=== PATIENT | female | born 1960 | race Caucasian/White ===

== ENCOUNTER 2022-04-04 07:43 | Day surgery (SDC) | payer MEDICARE, OTHER ==
[2022-03-31 13:43] VITALS: BMI 26.0
[2022-04-04] MEDS ORDERED: EPINEPHrine 1 MG/ML AMP ONE (12:05)
[2022-04-04] MEDS ORDERED: Fentanyl 100 MCG/2 ML VIAL ONE ×2 (12:05→13:26)
[2022-04-04] MEDS ORDERED: Lidocaine 1% PF 5 ML VIAL ONE (12:06)
[2022-04-04] MEDS ORDERED: Dexamethasone 20 MG/5 ML VIAL ONE (12:07)
[2022-04-04] MEDS ORDERED: PROPOFOL 40 ML ONE (12:07)
[2022-04-04] MEDS ORDERED: Ondansetron PF 4 MG/2 ML Vial ONE (12:07)
[2022-04-04] MEDS ORDERED: Sodium Chloride 0.9% 20 ML ONE (12:11)
[2022-04-04] MEDS ORDERED: PHENYLEPHRINE-NS 100 MCG/ML 10 ML SYRINGE ONE (12:24)
[2022-04-04] MEDS ORDERED: Glycopyrrolate 0.2 MG/ML 5 ML SYRINGE ONE (13:01)
[2022-04-04] MEDS ORDERED: HYDROcodone/Acetaminophen 5/325 mg Tablet ONE (14:00)
== END 2022-04-04 14:25 | disposition home or self-care (01) ==
LOC: CSHSDC 07:43
PROVIDERS: ATTEND Otolaryngology Plastic Surgery within the Head & Neck
PROC: 0CB10ZZ Excision of Lower Lip, Open Approach (ICD-10-PCS; principal; 2022-04-04)
PROC: 0CB Mouth and Throat, Excision (ICD-10-PCS; 2022-04-04)
PROC: 0C5 Mouth and Throat, Destruction (ICD-10-PCS; 2022-04-04)
DX: K13.21 Leukoplakia of oral mucosa, including tongue (principal); K13.0 Diseases of lips; Z90.49 Acquired absence of other specified parts of digestive tract
CPT/HCPCS: 88305; 93005; 93010; J0171; J1100; J2405; J2704; J3010